=== PATIENT | female | born 1995 | race Caucasian/White ===

== ENCOUNTER 2020-04-04 03:45 | Emergency (ER) | payer MEDICAID ==
[~2020-04-04] VITALS: Ht 170.2 cm; Wt 52.6 kg
[2020-04-04 04:02] VITALS: BP 143/93
--- NOTE | 2020-04-04 04:08 | NUR ---
PT AMBULATED TO BED 4 WITH STEADY GAIT
--- NOTE | 2020-04-04 04:16 | NUR ---
Dr. Grove examining patient.
--- NOTE | 2020-04-04 04:16 | NUR ---
URINE DIP AND PREG DONE
--- NOTE | 2020-04-04 04:17 | NUR ---
URINE SAMPLE OBTAINED AND LEFT FOR LAB
[2020-04-04] MEDS ORDERED: IBUPROFEN 600 MG TAB PO ONE (04:25)
[2020-04-04] MEDS ORDERED: ACETAMINOPHEN EXTRA STRENGTH 500 MG TAB PO ONE (04:25)
--- NOTE | 2020-04-04 04:28 | NUR ---
24 Y/O FEMALCE C/O X 1 DAY LOWER ABD PAIN THAT RADIATES TO RIGHT/LEFT FLANK; DENIES N/V/D; SKIN IS PINK/WARM/DRY; AAOX4 WITH EVEN AND STEADY GAIT; HR EVEN AND REGULAR; PT DENIES ANY FEVER, CP, SOB, OR COUGH AT THIS TIME; PATIENT STATES PAIN OF 8/10 AT THIS TIME; VSS; PATIENT POSITIONED FOR COMFORT; HOB ELEVATED; BEDRAILS UP X2; BED DOWN AND LOCKED PMH: ASTHMA NKA
--- NOTE | 2020-04-04 04:43 | NUR ---
PT TAKEN TO CT
--- NOTE | 2020-04-04 04:54 | NUR ---
PT RETURNED FROM CT VIA W/C
--- NOTE | 2020-04-04 05:08 | NUR ---
YONIS Grove at bedside reevaluating patient.
[2020-04-04 05:16] VITALS: BP 143/93
--- NOTE | 2020-04-04 05:16 | NUR ---
Patient discharged with v/s stable. Written and verbal after care instructions given and explained. Patient alert, oriented and verbalized understanding of instructions. Ambulatory with steady gait. All questions addressed prior to discharge. ID band removed. Patient advised to follow up with PMD. Rx of MOTRIN/ACETAMINOPHEN/CEPHALEXIN given. Patient educated on indication of medication including possible reaction and side effects. Opportunity to ask questions provided and answered.
== END 2020-04-04 05:16 | disposition home or self-care (01) ==
LOC: MED 03:45
DX: N12 Tubulo-interstitial nephritis, not specified as acute or chronic (principal)
CPT/HCPCS: 81002; 81025; 99284

== ENCOUNTER 2020-08-19 08:56 | Emergency (ER) | payer MEDICAID, OTHER ==
[~2020-08-19] VITALS: Ht 170.2 cm; Wt 54.9 kg
[2020-08-19 09:06] VITALS: BP 134/77
--- NOTE | 2020-08-19 10:07 | NUR ---
NO NURSING CARE PROVIDED
[2020-08-19 10:14] VITALS: BP 134/77
--- NOTE | 2020-08-19 10:14 | NUR ---
Patient discharged with v/s stable. Written and verbal after care instructions given and explained. Patient alert, oriented and verbalized understanding of instructions. Ambulatory with steady gait. All questions addressed prior to discharge. ID band removed. Patient advised to follow up with PMD. Rx of Pyridium, Bactrim DS given. Patient educated on indication of medication including possible reaction and side effects. Opportunity to ask questions provided and answered.
== END 2020-08-19 10:14 | disposition home or self-care (01) ==
LOC: MED 08:56
DX: N39.0 Urinary tract infection, site not specified (principal); J45.909 Unspecified asthma, uncomplicated; F12.90 Cannabis use, unspecified, uncomplicated
CPT/HCPCS: 81002; 81025; 99283